=== PATIENT | female | born 1985 | race Hispanic/Latino ===

== ENCOUNTER 2021-01-08 15:18 | Outpatient (CLI) | payer OTHER ==
[2021-01-09 04:29] LABS: SARS-CoV-2 PCR by NAA Not Detected (NotDetected)
[2021-01-19 17:27] VITALS: BMI 33.5
== END 2021-01-08 15:19 | disposition home or self-care (01) ==
LOC: CSHLAB 15:18
PROVIDERS: ATTEND Family Medicine
DX: Z20.822 Contact with and (suspected) exposure to COVID-19 (principal)
CPT/HCPCS: 87635; U0003; U0005

== ENCOUNTER 2021-01-14 12:14 | Outpatient (CLI) | payer OTHER ==
[2021-01-15 02:31] LABS: SARS-CoV-2 PCR by NAA Not Detected (NotDetected)
== END 2021-01-14 12:15 | disposition home or self-care (01) ==
LOC: CSHLAB 12:14
PROVIDERS: ATTEND Family Medicine
DX: Z20.822 Contact with and (suspected) exposure to COVID-19 (principal)
CPT/HCPCS: 87635; U0003; U0005

== ENCOUNTER 2021-01-19 15:37 | Inpatient (IN) | payer MEDICAID, OTHER, SELFPAY ==
[2021-01-19] MEDS ORDERED: hydrALAZINE 20 MG/ML VIAL SLOW IVP PRN ×2 (16:05→17:02)
[2021-01-19] MEDS ORDERED: HYDROcodone/Acetaminophen 5/325 mg Tablet PO PRN ×2 (17:02)
[2021-01-19] MEDS ORDERED: Carboprost 250 MCG/ML AMP IM PRN (17:02)
[2021-01-19] MEDS ORDERED: Diphenoxylate HCl/Atropine Tablet PO PRN ×2 (17:02)
[2021-01-19] MEDS ORDERED: Ibuprofen 800 MG TAB PO PRN (17:02)
[2021-01-19] MEDS ORDERED: Ondansetron PF 4 MG/2 ML Vial IVP PRN (17:02)
[2021-01-19] MEDS ORDERED: Methylergonovine 0.2 MG/ML VIAL IM PRN (17:02)
[2021-01-19] MEDS ORDERED: Lidocaine 1% (PF) 30 ML VIAL SC PRN (17:02)
[2021-01-19] MEDS ORDERED: Acetaminophen 500 MG TAB PO PRN (17:02)
[2021-01-19] MEDS ORDERED: Promethazine HCl 25 MG/ML VIAL IM PRN (17:02)
[2021-01-19] MEDS ORDERED: Misoprostol 200 MCG TAB PR PRN (17:02)
[2021-01-19] MEDS ORDERED: NS / Oxytocin 40 units/1000ml 1,000 ML IV PRN (17:02)
[2021-01-19] MEDS ORDERED: Misoprostol 100 MCG TAB VAG SCH (17:15)
[2021-01-19 17:50] LABS: Hemoglobin 10.5 g/dL (12.0-15.5); Mean Corpuscular HGB CONC 31.1 g/dL (32.0-36.0); Mean Corpuscular Hemoglobin 24.3 pg (27.0-33.0); Mean Corpuscular Volume 78.2 fl (81.6-98.3); Mean Platelet Volume 11.3 fl (7.4-10.4); Platelet Count 214 10x3/uL (150-450); RBC Distribution Width 16.4 % (11.5-14.5); Red Blood Cell (RBC) Count 4.32 10x6/uL (3.90-5.03); White Blood Cell (WBC) Count 9.1 10x3/uL (3.5-10.5)
[2021-01-19] MEDS ORDERED: NS w/ Oxytocin 30 units 1,000 ML IV SCH (18:00)
[2021-01-19] MEDS ORDERED: Misoprostol 100 MCG TAB ONE (18:03)
[2021-01-19] MEDS: Misoprostol 100 MCG TAB PO SCH ×2 (18:18→21:56)
[2021-01-19 18:19] VITALS: BMI 33.5
[2021-01-19 18:30] LABS: Hep B Surf Ag Non-Reactive S/CO (NonReactive); Syphilis Antibody Nonreactive (Nonreactive); Syphilis Antibody Index 0.03 S/CO (<1.00 Non-Reactive)
[2021-01-19] MEDS: Lactated Ringer's 1,000 ML IV SCH (20:58)
[2021-01-19] MEDS: Butorphanol Tartrate 1 MG/ML VIAL SLOW IVP PRN (21:56)
[2021-01-19] MEDS ORDERED: NS w/ Oxytocin 30 units 500 ML ONE (23:52)
[2021-01-20] MEDS: Butorphanol Tartrate 1 MG/ML VIAL SLOW IVP PRN (00:35)
[2021-01-20] MEDS: Lactated Ringer's 1,000 ML IV SCH (01:20)
[2021-01-20] MEDS: Misoprostol 100 MCG TAB PO SCH ×2 (01:29→06:29)
[2021-01-20] MEDS ORDERED: Bisacodyl 10 MG SUPP PR PRN (03:45)
[2021-01-20] MEDS ORDERED: Benzocaine-Menthol 82.5 ML CAN TOP PRN (03:45)
[2021-01-20] MEDS ORDERED: NS / Oxytocin 40 units/1000ml 1,000 ML IV SCH (03:45)
[2021-01-20] MEDS ORDERED: Ondansetron PF 4 MG/2 ML Vial IVP PRN (03:45)
[2021-01-20] MEDS ORDERED: hydrALAZINE 20 MG/ML VIAL SLOW IVP PRN (03:45)
[2021-01-20] MEDS ORDERED: Lanolin Ointment 7 GM TUBE TOP PRN (03:45)
[2021-01-20] MEDS ORDERED: Misoprostol 200 MCG TAB VAG PRN (03:45)
[2021-01-20] MEDS ORDERED: HYDROcodone/Acetaminophen 5/325 mg Tablet PO PRN ×2 (03:45)
[2021-01-20] MEDS ORDERED: Methylergonovine 0.2 MG/ML VIAL IM PRN (03:45)
[2021-01-20] MEDS ORDERED: Milk Of Magnesia 30 ML UDCUP PO PRN (03:45)
[2021-01-20] MEDS ORDERED: Preparation H Ointment 28 GM TUBE PR PRN (03:45)
[2021-01-20] MEDS ORDERED: Promethazine HCl 25 MG/ML VIAL IM PRN (03:45)
[2021-01-20] MEDS ORDERED: diphenhydrAMINE 25 MG CAP PO PRN (03:45)
[2021-01-20] MEDS ORDERED: NS w/ Oxytocin 30 units 500 ML ONE (04:42)
[2021-01-20] MEDS: Ibuprofen 800 MG TAB PO SCH ×3 (06:29→22:06)
[2021-01-20] MEDS: Ferrous Sulfate 325 MG TAB PO SCH ×2 (08:17→17:55)
[2021-01-20] MEDS ORDERED: Measles/Mumps/Rubella 10 MCG/0.5 ML VIAL SC ONE (09:00)
[2021-01-20] MEDS ORDERED: Adacel (T-DAP) 0.5 ML SYRINGE IM ONE (09:00)
[2021-01-20] MEDS ORDERED: Varicella virus, LIVE 0.5 ML VIAL SC ONE (09:00)
[2021-01-20] MEDS: Prenatal Vitamin 1 TAB PO SCH (09:19)
[2021-01-20] MEDS: Docusate Calcium (SURFAK) 240 MG CAP PO SCH ×2 (09:19→22:06)
[2021-01-20 16:20] LABS: SARS-CoV-2 PCR by NAA Not Detected (NotDetected)
[2021-01-21] MEDS: Ibuprofen 800 MG TAB PO SCH (06:06)
[2021-01-21 07:51] VITALS: BP 102/54; TEMP 98.2
[2021-01-21] MEDS: Prenatal Vitamin 1 TAB PO SCH (08:48)
[2021-01-21] MEDS: Docusate Calcium (SURFAK) 240 MG CAP PO SCH (08:48)
[2021-01-21] MEDS: Ferrous Sulfate 325 MG TAB PO SCH (08:49)
== END 2021-01-21 13:16 | disposition home or self-care (01) | DRG 807 ==
LOC: CSHLD/OP 15:37 → CSHLD 20:05 → CSHPP 01-20 08:01
PROVIDERS: ADMIT Family Medicine; ATTEND Family Medicine
PROC: 10E0XZZ Delivery of Products of Conception, External Approach (ICD-10-PCS; principal; 2021-01-20)
PROC: 4A0HXCZ Measurement of Products of Conception, Cardiac Rate, External Approach (ICD-10-PCS; 2021-01-20)
DX: O42.92 Full-term premature rupture of membranes, unspecified as to length of time between rupture and onset of labor (principal); Z37.0 Single live birth; O69.81X0 Labor and delivery complicated by cord around neck, without compression, not applicable or unspecified; O48.0 Post-term pregnancy; O62.3 Precipitate labor; Z3A.41 41 weeks gestation of pregnancy
CPT/HCPCS: 85027; 86780; 86850; 86900; 86901; 87340; 87635; 99285; J0595; J2405; J2590; U0003; U0005

== ENCOUNTER 2022-06-17 15:00 | Outpatient (CLI) | payer OTHER | END 2022-06-17 15:01 | disposition home or self-care (01) | LOC: CSHULT 15:00 | PROVIDERS: ATTEND Family Medicine | DX: O09.523 Supervision of elderly multigravida, third trimester (principal); Z3A.29 29 weeks gestation of pregnancy | CPT/HCPCS: 76805 ==

== ENCOUNTER 2022-09-06 14:30 | Inpatient (IN) | payer MEDICAID, OTHER ==
[2022-09-06] MEDS ORDERED: NS w/ Oxytocin 30 units 500 ML ONE (15:09)
[2022-09-06] MEDS ORDERED: Diphenoxylate HCl/Atropine Tablet PO PRN (15:13)
[2022-09-06] MEDS ORDERED: Misoprostol 200 MCG TAB PR PRN (15:13)
[2022-09-06] MEDS ORDERED: Ibuprofen 800 MG TAB PO PRN (15:13)
[2022-09-06] MEDS ORDERED: HYDROcodone/Acetaminophen 5/325 mg Tablet PO PRN ×2 (15:13→16:23)
[2022-09-06] MEDS ORDERED: Methylergonovine 0.2 MG/ML VIAL IM PRN (15:13)
[2022-09-06] MEDS ORDERED: Promethazine HCl 25 MG/ML VIAL IM PRN (15:13)
[2022-09-06] MEDS ORDERED: Lidocaine 1% (PF) 30 ML VIAL SC PRN (15:13)
[2022-09-06] MEDS ORDERED: hydrALAZINE 20 MG/ML VIAL SLOW IVP PRN ×2 (15:13→16:23)
[2022-09-06] MEDS ORDERED: Ondansetron PF 4 MG/2 ML Vial IVP PRN ×2 (15:13→16:23)
[2022-09-06] MEDS ORDERED: Carboprost 250 MCG/ML AMP IM PRN (15:13)
[2022-09-06] MEDS ORDERED: Penicillin G Potassium 5 MILL.UNITS in Sodium Chloride 0.9% 100 ML IVPB SCH (15:15)
[2022-09-06] MEDS ORDERED: Lactated Ringer's 1,000 ML IV SCH (15:15)
[2022-09-06] MEDS ORDERED: NS w/ Oxytocin 30 units 500 ML IV SCH ×2 (15:15→16:23)
[2022-09-06 15:28] LABS: Hemoglobin 10.7 g/dL (12.0-15.5); Mean Corpuscular HGB CONC 32.1 g/dL (32.0-36.0); Mean Corpuscular Hemoglobin 25.3 pg (27.0-33.0); Mean Corpuscular Volume 78.7 fl (81.6-98.3); Mean Platelet Volume 11.8 fl (7.4-10.4); Platelet Count 247 10x3/uL (150-450); RBC Distribution Width 15.4 % (11.5-14.5); Red Blood Cell (RBC) Count 4.23 10x6/uL (3.90-5.03); White Blood Cell (WBC) Count 7.4 10x3/uL (3.5-10.5)
[2022-09-06 16:18] LABS: HBSAg Index 0.15 S/CO (0-0.99); Hep B Surf Ag Non-Reactive S/CO (NonReactive)
[2022-09-06 16:20] LABS: Syphilis Antibody Nonreactive (Nonreactive); Syphilis Antibody Index 0.05 S/CO (<1.00 Non-Reactive)
[2022-09-06 16:21] VITALS: BMI 32.1
[2022-09-06] MEDS ORDERED: Boostrix 0.5 ML (Tdap) VIAL (>/=7 yrs of age) IM ONE (16:23)
[2022-09-06] MEDS ORDERED: diphenhydrAMINE 25 MG CAP PO PRN (16:23)
[2022-09-06] MEDS ORDERED: Preparation H Ointment 28 GM TUBE PR PRN (16:23)
[2022-09-06] MEDS ORDERED: Benzocaine-Menthol 82.5 ML CAN TOP PRN (16:23)
[2022-09-06] MEDS ORDERED: Bisacodyl 10 MG SUPP PR PRN (16:23)
[2022-09-06] MEDS ORDERED: Milk Of Magnesia 30 ML UDCUP PO PRN (16:23)
[2022-09-06] MEDS ORDERED: Lanolin Ointment 7 GM TUBE TOP PRN (16:23)
[2022-09-06] MEDS: Ferrous Sulfate 325 MG TAB PO SCH (17:33)
[2022-09-06] MEDS ORDERED: Penicillin G 2.5 MILL.units 2.5 MILL.UNITS in Premix Bag 1 BAG IVPB SCH (19:15)
[2022-09-06] MEDS: Docusate 100 MG CAP PO SCH (21:20)
[2022-09-06] MEDS: Ibuprofen 800 MG TAB PO SCH (21:20)
[2022-09-07] MEDS: Ibuprofen 800 MG TAB PO SCH ×3 (06:23→21:19)
[2022-09-07] MEDS: Docusate 100 MG CAP PO SCH ×2 (08:28→21:19)
[2022-09-07] MEDS: Prenatal Vitamin 1 TAB PO SCH (08:28)
[2022-09-07] MEDS: Ferrous Sulfate 325 MG TAB PO SCH ×2 (08:29→18:32)
[2022-09-08] MEDS: Ibuprofen 800 MG TAB PO SCH ×2 (05:45→13:47)
[2022-09-08 08:03] VITALS: BP 106/53; TEMP 98.1
[2022-09-08] MEDS: Ferrous Sulfate 325 MG TAB PO SCH (09:01)
[2022-09-08] MEDS: Docusate 100 MG CAP PO SCH (09:01)
[2022-09-08] MEDS: Prenatal Vitamin 1 TAB PO SCH (09:01)
== END 2022-09-08 16:00 | disposition home or self-care (01) | DRG 807 ==
LOC: CSHLD 14:30 → CSHPP 16:53
PROVIDERS: ADMIT Family Medicine; ATTEND Family Medicine
PROC: 10E0XZZ Delivery of Products of Conception, External Approach (ICD-10-PCS; principal; 2022-09-06)
DX: O42.02 Full-term premature rupture of membranes, onset of labor within 24 hours of rupture (principal); Z37.0 Single live birth; O99.824 Streptococcus B carrier state complicating childbirth; Z3A.41 41 weeks gestation of pregnancy
CPT/HCPCS: 85027; 86780; 86850; 86900; 86901; 87340; 99285